=== PATIENT | female | born 1950 | race American Indian/Alaskan Native ===

== ENCOUNTER 2019-07-20 09:03 | Outpatient (CLI) | payer MEDICARE ==
--- NOTE | 2019-07-21 08:43 | Mammography Report ---
DIGITAL SCREENING MAMMOGRAM WITH CAD, 07/20/2019 INDICATION: Routine screening mammography. TECHNIQUE: Digital bilateral 2D mammography was obtained in the craniocaudal and mediolateral obliq ue projections. This examination was interpreted with the benefit of Computer-Aided Detection analysi s. COMPARISON: None available. FINDINGS: Breast Density: The breasts are heterogeneously dense, which may obscure small masses. A 2.5 cm left upper outer breast mass at approximately 12 cm from the nipple requires additional imag ing and additional bilateral mammographic asymmetries require additional imaging. No architectural di stortion or suspicious calcifications. IMPRESSION: A 2.5 cm left breast mass and bilateral parenchymal asymmetries requiring additional imag ing. Recommend recall for bilateral spot magnification views, left breast ultrasound and right breast ultrasound if needed. Follow up recommendation: Special View: Mag Category 0: Incomplete. Needs additional imaging evaluation and/or prior mammograms for comparison. A "normal" or negative report should not discourage follow up or biopsy of a clinically significant f inding. A written summary of these findings will be mailed to the patient. The patient will be entered into a mammography reporting system which will generate a reminder letter for the patient's next appointmen t at the appropriate interval. The [employer] recommends yearly mammograms starting at age 40 and continuing as l mary as a woman is in good health. Breast MRI is recommended for women with an approximate 20-25% or greater lifetime risk of breast cancer, including women with a strong family history of breast or ova nishant cancer or who have been treated for Hodgkin's disease. Signer Name: Richard Coello MD Signed: 07/21/2019 8:39 AM Workstation Name: [id number]
== END 2019-07-20 09:04 | disposition home or self-care (01) ==
LOC: SPVWC 09:03
PROVIDERS: ATTEND Family Medicine
DX: Z12.31 Encounter for screening mammogram for malignant neoplasm of breast (principal)
CPT/HCPCS: 77067

== ENCOUNTER 2019-09-07 14:45 | Outpatient (CLI) | payer MEDICARE ==
--- NOTE | 2019-09-07 16:09 | Mammography Report ---
BILATERAL DIGITAL DIAGNOSTIC MAMMOGRAM WITH CAD 09/07/2019 RIGHT COMPLETE BREAST ULTRASOUND INDICATION: Recall to evaluate bilateral mammographic asymmetries. TECHNIQUE: Digital bilateral mammographic imaging was performed. Magnification views were obtained. Complete ultrasound of all four (4) quadrants was performed. This examination was interpreted with rian del angel benefit of Computer-Aided Detection (CAD) analysis. COMPARISON: 07/20/2019 FINDINGS: Breast Density: The breasts are heterogeneously dense, which may obscure small masses. MAMMOGRAPHIC FINDINGS: A right upper spot magnification MLO view is negative. Satisfactory effacement of the right asymmetry. Spot magnification MLO and CC views of the left breast demonstrate an irregu lar upper outer mass measuring 2.2 cm. This correlates with the mammographic mass. ULTRASOUND FINDINGS: Complete sonographic evaluation of all 4 quadrants and retroareolar region was p erformed. A solid irregular heterogeneous hypoechoic mass at 2:00 10 cm from the nipple correlates with the mammographic mass and measures 2.4 x 1.6 x 1.9 cm. The mass is palpable. A suspicious shadow ing mass at 5:00 3 cm from the nipple measures 5 x 4 x 2 mm. Ultrasound of the left axilla demonstrat es a 2 cm lymph node with cortical thickening of 6.6 mm. IMPRESSION: 1. A suspicious 2.4 cm left breast mass at 2:00 10 cm from the nipple, a suspicious 5 mm left breast mass at 5:00 3 cm from the nipple and a suspicious left axillary lymph node. Recommend ultrasound-jean ded needle biopsy 2 breast masses and of the lymph node. 2. Negative right breast. I discussed the findings and the recommendation for 3 left needle biopsies with the patient at the ti me of the exam. Follow up recommendation: Biopsy BI-RADS Category 4: Suspicious for Malignancy. A "normal" or negative report should not discourage follow up or biopsy of a clinically significant f inding. A written summary of these findings will be mailed to the patient. The patient will be entered into a mammography reporting system which will generate a reminder letter for the patient's next appointmen t at the appropriate interval. According to the [employer], yearly mammograms are recommended starting at age 40 and continuing as long as a woman is in good health. Breast MRI is recommended for women with an jennifer roximately 20-25% or greater lifetime risk of breast cancer, including women with a strong family his tory of breast or ovarian cancer and women who have been treated for Hodgkin's disease. Signer Name: Richard Coello MD Signed: 09/07/2019 4:04 PM Workstation Name: [id number]
== END 2019-09-07 14:46 | disposition home or self-care (01) ==
LOC: SPVWC 14:45
PROVIDERS: ATTEND Family Medicine
DX: R92.8 Other abnormal and inconclusive findings on diagnostic imaging of breast (principal)
CPT/HCPCS: 77066